=== PATIENT | female | born 1995 | race Caucasian/White ===

== ENCOUNTER 2019-01-11 05:25 | Inpatient (IN) | payer OTHER ==
[~2019-01-11] VITALS: Ht 162.6 cm; Wt 99.5 kg
[~2019-01-11 05:25] MED LIST: METF-849 PO
[2019-01-11] MEDS ORDERED: LACTATED RINGER'S 1,000 ML IV SCH (05:45)
[2019-01-11 06:00] VITALS: BP 108/65; PULSE 91; RESP 20
[2019-01-11] MEDS ORDERED: CARBOPROST 250 MCG INJ IM PRN ×2 (06:00→09:30)
[2019-01-11] MEDS ORDERED: OXYTOCIN 30 UNITS/LR 500 ML IV PRN ×2 (06:00→09:30)
[2019-01-11] MEDS ORDERED: CEFAZOLIN 2 GM/50 ML (PMX) 50 ML IVPB SCH (06:00)
[2019-01-11] MEDS ORDERED: MISOPROSTOL 200 MCG TAB PR PRN ×2 (06:00→09:30)
[2019-01-11] MEDS ORDERED: METHYLERGONOVINE 0.2 MG INJ IM PRN ×2 (06:00→09:30)
[2019-01-11] MEDS ORDERED: LACTATED RINGER'S 1,000 ML IV ONE (07:26)
[2019-01-11] MEDS ORDERED: CITRIC ACID/NA CITRATE 30 ML CUP PO ONE (07:30)
[2019-01-11] MEDS ORDERED: FAMOTIDINE 20 MG INJ IV ONE (07:30)
[2019-01-11] MEDS ORDERED: METOCLOPRAMIDE 10 MG INJ IV ONE (07:30)
[2019-01-11] MEDS ORDERED: morphine SULFATE/PF (10 MG/10 ML) INJ ONE (08:03)
[2019-01-11] MEDS ORDERED: PHENYLephrine 10 MG INJ ONE (08:32)
[2019-01-11] MEDS ORDERED: PHENYLephrine (100 MCG/ML) 10ML SYG ONE (08:41)
[2019-01-11] MEDS ORDERED: ONDANSETRON 4 MG INJ ONE (08:41)
[2019-01-11] MEDS ORDERED: MIDAZOLAM 1 MG/ML 2 ML INJ ONE (08:57)
[2019-01-11] MEDS ORDERED: EPHEDrine 25 MG/5 ML SYG ONE (08:58)
[2019-01-11] MEDS ORDERED: EPHEDrine 25 MG/5 ML SYG IV PRN (09:00)
[2019-01-11] MEDS ORDERED: DIPHENHYDRAMINE 50 MG INJ IV PRN ×2 (09:00→10:30)
[2019-01-11] MEDS ORDERED: HYDROmorphONE 1 MG/5 ML IV SYRINGE IV PRN ×3 (09:00)
[2019-01-11] MEDS ORDERED: PROCHLORPERAZINE 10 MG INJ IV PRN (09:00)
[2019-01-11] MEDS ORDERED: FENTAnyl 50 MCG/ML VIAL IV PRN (09:00)
[2019-01-11] MEDS ORDERED: KETOROLAC 30 MG INJ IV PRN ×2 (09:00→10:30)
[2019-01-11] MEDS ORDERED: MEPERIDINE 25 MG INJ IV PRN (09:00)
[2019-01-11] MEDS ORDERED: ONDANSETRON 4 MG INJ IV PRN ×2 (09:00→10:30)
[2019-01-11] MEDS ORDERED: OXYTOCIN 30 UNITS/LR 500 ML IV ONE (09:03)
[2019-01-11] MEDS ORDERED: OXYTOCIN 30 UNITS/LR 500 ML IV SCH (09:13)
[2019-01-11] MEDS ORDERED: OXYCODONE/ACETAMINOPHEN (5/325) TAB PO PRN (09:30)
[2019-01-11] MEDS ORDERED: LANOLIN HPA 1 PKT TOP PRN (09:30)
[2019-01-11] MEDS ORDERED: NACL 0.9% 3 ML SYG IV SCH (09:30)
[2019-01-11] MEDS: ACCU-CHEK XX SCH ×3 (09:35→20:05)
[2019-01-11] MEDS ORDERED: NALOXONE (0.4 MG/ML) INJ IV PRN (10:30)
[2019-01-11] MEDS ORDERED: HYDROmorphONE 0.5 MG/0.5 ML SYG IV PRN (10:30)
[2019-01-11] MEDS: OXYTOCIN 30 UNITS/LR 500 ML IV SCH ×3 (12:18→23:14)
[2019-01-11] MEDS: IBUPROFEN 800 MG TAB PO SCH ×2 (14:00→22:00)
[2019-01-11 14:30] VITALS: BP 106/61; PULSE 84; RESP 18
[2019-01-11] MEDS: CEFAZOLIN 2 GM/50 ML (PMX) 50 ML IVPB SCH ×2 (15:43→23:16)
[2019-01-11 17:00] VITALS: BP 102/56; PULSE 80; RESP 16
[2019-01-11 19:50] VITALS: BP 103/60; PULSE 75
[2019-01-11] MEDS: HYDROmorphONE 0.5 MG/0.5 ML SYG IV PRN (21:29)
[2019-01-11 23:31] VITALS: BP 107/64; PULSE 85; RESP 18
[2019-01-12 03:19] VITALS: BP 95/56; PULSE 80
[2019-01-12] MEDS: LACTATED RINGER'S 1,000 ML IV SCH ×3 (04:58→20:30)
[2019-01-12] MEDS: IBUPROFEN 800 MG TAB PO SCH ×3 (06:00→21:52)
[2019-01-12] MEDS: HYDROmorphONE 0.5 MG/0.5 ML SYG IV PRN (06:56)
[2019-01-12] MEDS: ACCU-CHEK XX SCH ×4 (07:30→20:05)
[2019-01-12 08:00] VITALS: BP 99/61; PULSE 92; RESP 18
[2019-01-12] MEDS: OXYCODONE/ACETAMINOPHEN (5/325) TAB PO PRN ×2 (08:01→22:51)
[2019-01-12] MEDS: CEFAZOLIN 2 GM/50 ML (PMX) 50 ML IVPB SCH (08:45)
[2019-01-12 16:00] VITALS: BP 91/57; PULSE 104; RESP 20
[2019-01-12 19:50] VITALS: BP 110/69; PULSE 88; RESP 19
[2019-01-13 03:40] VITALS: BP 110/57; PULSE 69; RESP 18
[2019-01-13] MEDS: IBUPROFEN 800 MG TAB PO SCH ×3 (05:38→22:40)
[2019-01-13] MEDS: LACTATED RINGER'S 1,000 ML IV SCH ×2 (05:38→12:30)
[2019-01-13 08:30] VITALS: BP 95/55; PULSE 69; RESP 17
[2019-01-13] MEDS: ASCORBIC ACID 500 MG TAB PO SCH (13:51)
[2019-01-13] MEDS: FERROUS SULFATE (EC) 325 MG TAB PO SCH (13:51)
[2019-01-13 16:00] VITALS: BP 100/57; PULSE 82; RESP 16
[2019-01-13 16:40] VITALS: RESP 18
[2019-01-13 19:30] VITALS: BP 115/64; PULSE 81; RESP 19
[2019-01-13] MEDS: SENNA TAB PO SCH (20:58)
[2019-01-13] MEDS: OXYCODONE/ACETAMINOPHEN (5/325) TAB PO PRN (20:58)
[2019-01-13] MEDS: MAGNESIUM HYDROXIDE 30ML CUP PO SCH (20:58)
[2019-01-14 03:30] VITALS: BP 104/53; PULSE 75; RESP 18
[2019-01-14] MEDS: IBUPROFEN 800 MG TAB PO SCH (05:48)
[2019-01-14 08:35] VITALS: BP 86/50; PULSE 67; RESP 16
[2019-01-14] MEDS: FERROUS SULFATE (EC) 325 MG TAB PO SCH (08:42)
[2019-01-14] MEDS: ASCORBIC ACID 500 MG TAB PO SCH (08:42)
[2019-01-14] MEDS: SENNA TAB PO SCH (08:43)
[2019-01-14] MEDS: MAGNESIUM HYDROXIDE 30ML CUP PO SCH (08:43)
[2019-01-14] MEDS: OXYCODONE/ACETAMINOPHEN (5/325) TAB PO PRN (12:00)
== END 2019-01-14 13:15 | disposition home or self-care (01) | DRG 787 ==
LOC: L-D 05:25 → PP1 14:15
PROVIDERS: ADMIT Obstetrics & Gynecology; ATTEND Obstetrics & Gynecology
PROC: 10D00Z1 Extraction of Products of Conception, Low, Open Approach (ICD-10-PCS; principal; 2019-01-11 07:30)
DX: O24.429 Gestational diabetes mellitus in childbirth, unspecified control (principal); D62 Acute posthemorrhagic anemia; O90.81 Anemia of the puerperium; O65.5 Obstructed labor due to abnormality of maternal pelvic organs; O34.211 Maternal care for low transverse scar from previous cesarean delivery; Z3A.39 39 weeks gestation of pregnancy; Z37.0 Single live birth
CPT/HCPCS: 82947; 82962; 85025; 85610; 85730; 86592; 86850; 86900; 86901; 87086; 87340; 99464; J0690; J1170; J1200; J1885; J2250; J2274; J2370; J2405; J2590; J2765; J7120